=== PATIENT | female | born 1960 | race Caucasian/White ===

== ENCOUNTER 2018-11-04 09:22 | Day surgery (SDC) | payer MEDICAID ==
[2018-10-31 14:55] VITALS: BMI 23.0
[~2018-11-04 09:22] MED LIST: LACTATED RINGERS 1,000 ML IV SCH; LIDOCAINE 1% 20 ML VIAL (10MG/ML) FOR IV START INTRADERMA PRN
[2018-11-04 09:51] VITALS: TEMP 97.9
[2018-11-04] MEDS ORDERED: PROPOFOL 10 MG/ML 20 ML VIAL IV ONE (10:10)
[2018-11-04] MEDS ORDERED: LIDOCAINE 1% INJ 10MG/ML (20 ML MDV) ONE (10:10)
--- NOTE | 2018-11-04 10:12 | P.GSHP ---
History of Present Illness H&P Date: 11/04/18 Chief Complaint: Screening colonoscopy This a 58-year-old female who presents today for screening colonoscopy. Patient denies a significant GI complaints. Past Medical History Past Medical History: GERD/Reflux, Hypertension Additional Past Medical History / Comment(s): CONSTIPATION. History of Any Multi-Drug Resistant Organisms: None Reported Past Surgical History: Orthopedic Surgery, Tubal Ligation, Uterine Ablation Additional Past Surgical History / Comment(s): RT BUNION Past Anesthesia/Blood Transfusion Reactions: No Reported Reaction Smoking Status: Never smoker - Past Family History Father Family Medical History: Cancer Medications and Allergies Home Medications Medication Instructions Recorded Confirmed Type Venlafaxine HCl ER [Effexor Xr] 150 mg PO DAILY 10/31/18 11/04/18 History Zantac Otc (Unknown Dose) 1 tab PO DAILY PRN 10/31/18 History amLODIPine [Norvasc] 5 mg PO DAILY 10/31/18 11/04/18 History Allergies Allergy/AdvReac Type Severity Reaction Status Date / Time oxycodone [From Percocet] Allergy Rash/Hives Verified 10/31/18 14:38 Surgical - Exam Vital Signs Temp Pulse Resp BP Pulse Ox 97.9 F 71 16 154/83 96 11/04/18 09:49 11/04/18 09:49 11/04/18 09:49 11/04/18 09:49 11/04/18 09:49 - General well developed, well nourished, no distress - Eyes PERRL - ENT normal pinna - Neck no masses - Respiratory normal expansion - Cardiovascular Rhythm: regular - Abdomen Abdomen: soft, non tender Assessment and Plan Assessment: We'll perform screening colonoscopy.
--- NOTE | 2018-11-04 10:27 | P.OP ---
Date of Procedure: 11/04/18 Preoperative Diagnosis: Screening colonoscopy Postoperative Diagnosis: Normal colon Procedure(s) Performed: Colonoscopy Anesthesia: MAC Surgeon: Olivier Bedolla Pathology: none sent Condition: stable Disposition: PACU Description of Procedure: PROCEDURE: The patient was placed on the endoscopy table in the lateral position. Digital rectal examination was performed which revealed no abnormalities. . Flexible colonoscope was then placed in the patient's anus and passed throughout the entire colon. The ileocecal valve was visualized. The cecum, ascending, transverse, descending and sigmoid colon were normal. The rectum was normal as well. There were no masses, polyps or diverticula noted in the entire colon. SUMMARY OF FINDINGS: Normal colonoscopy.
[2018-11-04 10:50] VITALS: RESP 16
[2018-11-04 11:07] VITALS: BP 136/80; PULSE 72
== END 2018-11-04 11:08 | disposition home or self-care (01) ==
LOC: ORWHC2ENDO 09:22
PROVIDERS: ATTEND Surgery
DX: Z12.11 Encounter for screening for malignant neoplasm of colon (principal); K21.9 Gastro-esophageal reflux disease without esophagitis; I10 Essential (primary) hypertension; Z79.899 Other long term (current) drug therapy; Z88.5 Allergy status to narcotic agent
CPT/HCPCS: J2001; J2704; G0121

== ENCOUNTER → 2020-07-16 | Outpatient (CLI) | payer BC, MEDICAID | END | disposition home or self-care (01) | LOC: LABWHC1 08:37 | PROVIDERS: ATTEND Family Medicine | DX: R50.9 Fever, unspecified (principal); R05 Cough; R09.89 Other specified symptoms and signs involving the circulatory and respiratory systems | CPT/HCPCS: U0003; C9803; U0005 ==

== ENCOUNTER → 2020-07-26 | Outpatient (CLI) | payer BC | END | disposition home or self-care (01) | LOC: LABWHC1 11:29 | PROVIDERS: ATTEND Family Medicine | DX: Z20.822 Contact with and (suspected) exposure to COVID-19 (principal) | CPT/HCPCS: U0003; C9803; U0005 ==

== ENCOUNTER → 2020-11-10 | Outpatient (CLI) | payer BC ==
--- NOTE | 2020-11-10 09:01 | MM ---
Reason for exam: screening (asymptomatic). Baseline mammogram. History: Patient is postmenopausal. Taking estrogen for 2 years beginning at age 58. Taking progesterone for 2 years beginning at age 58. Physical Findings: Nurse did not find any significant physical abnormalities on exam. MG 3D Screening Mammo W/Cad Bilateral CC, MLO, and XCCL view(s) were taken. The breast tissue is heterogeneously dense. This may lower the sensitivity of mammography. There is no discrete abnormality. Mild promonence retroareolar region consistent with prominent ducts. These results were verbally communicated with the patient and result sheet given to the patient on 11/10/20. ASSESSMENT: Benign, BI-RAD 2 RECOMMENDATION: Routine screening mammogram of both breasts in 1 year.
== END | disposition home or self-care (01) ==
LOC: RADMAMWWP 07:01
PROVIDERS: ATTEND Family Medicine
DX: Z12.31 Encounter for screening mammogram for malignant neoplasm of breast (principal); Z78.0 Asymptomatic menopausal state
CPT/HCPCS: 77063; 77067

== ENCOUNTER → 2021-12-19 | Outpatient (CLI) | payer BC ==
--- NOTE | 2021-12-19 17:45 | BD ---
EXAMINATION TYPE: Axial Bone Density DATE OF EXAM: 12/19/2021 COMPARISON: NONE CLINICAL HISTORY: 61 years year old Female. ICD-10 CODE: N951 POST MENOPAUSAL SYMPTOMS Height: 62 IN Weight: 132 LBS FRAX RISK QUESTIONS: Family History (Parent hip fracture): YES MOTHER RISK FACTORS HISTORY OF: History of Wrist Fracture: RT WRIST FX AGE 6 Surgery to Wrist (right): AGE 6 Family History of Osteoporosis: YES MOTHER Active: YES Postmenopausal woman: AGE 59 Take estrogen and/or progesterone medications: YES SINCE AGE 59 MEDICATIONS: Additional Medications: PROGESTERONE, ESTRADIAL, EFFEXOR,BLOOD PRESSURE MEDS EXAM MEASUREMENTS: Bone mineral densitometry was performed using the [employer] System. Bone mineral density as measured about the Lumbar spine is: ----- L1-L4(G/cm2): 1.109 T Score Values are as follows: ----- L1: -1.0 ----- L2: -1.6 ----- L3: 0.0 ----- L4: 0.0 ----- L1-L4: -0.6 Bone mineral density BASELINE Bone mineral density about the R hip (g/cm2): 0.805 Bone mineral density about the L hip (g/cm2): 0.846 T Score values are as follows: -----R Neck: -1.7 -----L Neck: -1.4 -----R Total: -1.3 -----L Total: -1.2 Bone mineral density BASELINE FRAX%s: The graph provided illustrates a 16.9 chance for a major osteoporotic fx and a 1.0 chance for the hips probability for fx in 10 years time. IMPRESSION: Osteopenia (T Score between -2.5 and -1). There is slightly increased risk of fracture and the patient may be considered for treatment. Re-Screen 2-5 years. NOTE: T-SCORE=SD OF THE YOUNG ADULT MEAN.
--- NOTE | 2021-12-20 09:29 | MM ---
Reason for Exam: Screening (asymptomatic). Last mammogram was performed 1 year(s) and 1 month(s) ago. Patient History: Menarche at age 13. First Full-Term at age 22. Postmenopausal. Patient has history of breast feeding. Currently using Estrogen, beginning at age 58 for 4 years. Currently using Progesterone, beginning at age 58 for 4 years. Risk Values: Patricia 5 year model risk: 1.3%. NCI Lifetime model risk: 6.4%. Prior Study Comparison: 11/10/2020 Bilateral Screening Mammogram, [facility]. Tissue Density: The breast tissue is heterogeneously dense. This may lower the sensitivity of mammography. Findings: Analyzed By CAD. There is no suspicious group of microcalcifications or new suspicious mass in either breast. Benign calcifications noted. Overall Assessment: Benign, BI-RAD 2 Management: Screening Mammogram of both breasts in 1 year. A clinical breast exam by your physician is recommended on an annual basis and results should be correlated with mammographic findings. Electronically signed and approved by: Sim Nye M.D. Radiologis
== END | disposition home or self-care (01) ==
LOC: RADMAMWWP 07:43
PROVIDERS: ATTEND Family Medicine
DX: Z12.31 Encounter for screening mammogram for malignant neoplasm of breast (principal); M85.89 Other specified disorders of bone density and structure, multiple sites; Z78.0 Asymptomatic menopausal state
CPT/HCPCS: 77063; 77067; 77080

== ENCOUNTER → 2023-01-25 | Outpatient (CLI) | payer BC ==
--- NOTE | 2023-01-25 07:18 | MM ---
Reason for Exam: Clinical finding. Last mammogram was performed 1 year(s) and 1 month(s) ago. Patient History: Menarche at age 13. First Full-Term at age 22. Postmenopausal. Patient has history of breast feeding. Currently using Estrogen, beginning at age 58 for 4 years. Currently using Progesterone, beginning at age 58 for 4 years. Risk Values: Patricia 5 year model risk: 1.4%. NCI Lifetime model risk: 6.2%. Prior Study Comparison: 11/10/2020 Bilateral Screening Mammogram, [facility]. 12/19/2021 Bilateral MG 3D screening mammo w/cad, [facility]. Tissue Density: The breast tissue is heterogeneously dense. This may lower the sensitivity of mammography. Findings: Analyzed By CAD. No significant change from prior exams. There is a palpable marker seen high in the left axilla for which ultrasound can be performed. Overall Assessment: Incomplete: need additional imaging evaluation, BI-RAD 0 Management: Diagnostic Breast Ultrasound of the left breast. Electronically signed and approved by: Samanta Larkin M.D. Radiologist
--- NOTE | 2023-01-25 09:51 | USB ---
Reason for Exam: Clinical finding. Patient History: Menarche at age 13. First Full-Term at age 22. Postmenopausal. Patient has history of breast feeding. Currently using Estrogen, beginning at age 58 for 4 years. Currently using Progesterone, beginning at age 58 for 4 years. Risk Values: Patricia 5 year model risk: 1.4%. NCI Lifetime model risk: 6.2%. Technique: Method: Targeted. Prior Study Comparison: 11/10/2020 Bilateral Screening Mammogram, [facility]. 12/19/2021 Bilateral MG 3D screening mammo w/cad, [facility]. Findings: The upper outer quadrant of the left breast, the axilla of the left breast and the retroareolar of the left breast were scanned. Targeted ultrasound left breast upper-outer quadrant including the subareolar region and with particular attention to the axilla. Dense tissues present throughout. No solid or cystic lesion or axillary lymphadenopathy. Overall Assessment: Benign, BI-RAD 2 Management: Screening Mammogram of both breasts in 1 year. Further clinical management of any suspicious palpable abnormalities. There is no mammographic or sonographic correlate to the patient directed palpable site high in the left axilla. These results should not preclude additional follow-up of suspicious palpable abnormalities. Results were given to the patient verbally at the time of exam. Electronically signed and approved by: Samanta Larkin M.D. Radiologist
== END | disposition home or self-care (01) ==
LOC: RADMAMWWP 06:50
PROVIDERS: ATTEND Family Medicine
DX: N63.10 Unspecified lump in the right breast, unspecified quadrant (principal); Z78.0 Asymptomatic menopausal state
CPT/HCPCS: 77062; 77066

== ENCOUNTER → 2024-03-13 | Outpatient (CLI) | payer BC ==
--- NOTE | 2024-03-13 14:22 | MM ---
Reason for Exam: Screening (asymptomatic). Last mammogram was performed 1 year(s) and 2 month(s) ago. Patient History: Menarche at age 13. First Full-Term at age 22. Postmenopausal. Patient has history of breast feeding. Currently using Estrogen, beginning at age 58 for 4 years. Currently using Progesterone, beginning at age 58 for 4 years. Risk Values: Patricia 5 year model risk: 1.4%. NCI Lifetime model risk: 6.0%. Prior Study Comparison: 11/10/2020 Bilateral Screening Mammogram, [facility]. 12/19/2021 Bilateral MG 3D screening mammo w/cad, [facility]. 01/25/2023 Bilateral MG 3D diag mammo w/cad [facility], [facility]. Tissue Density: The breasts are extremely dense, which lowers the sensitivity of mammography. Findings: Analyzed By CAD. There is no suspicious group of microcalcifications or new suspicious mass in either breast. Overall Assessment: Negative, BI-RAD 1 Management: Screening Mammogram of both breasts in 1 year. . Patient should continue monthly self-breast exams. A clinical breast exam by your physician is recommended on an annual basis. This exam should not preclude additional follow-up of suspicious palpable abnormalities. Note on Patricia scores and lifetime risk: 1. A Patricia score greater than 3% is considered moderate risk. If this is the case, consider specialist referral to assess eligibility for a risk reducing agent. 2. If overall lifetime risk for the development of breast cancer is 20% or higher, the patient may qualify for future screening with alternating mammogram and breast MRI. Electronically signed and approved by: Reid Newton M.D. Radiologis
== END | disposition home or self-care (01) ==
LOC: RADMAMWWP 07:29
PROVIDERS: ATTEND Family Medicine
DX: Z12.31 Encounter for screening mammogram for malignant neoplasm of breast
CPT/HCPCS: 77063; 77067